=== PATIENT | male | born 1990 | race Caucasian/White ===

== ENCOUNTER 2016-11-15 14:11 | Emergency (ER) | payer MEDICAID, OTHER ==
--- NOTE | 2016-11-15 16:16 | EDPHY ---
H & P Stated Complaint: Working at computer and got dizzy Time Seen by Provider: 11/15/16 16:05 HPI/ROS: CHIEF COMPLAINT: Pre syncope HISTORY OF PRESENT ILLNESS: Patient is a 26-year-old man with no significant past medical history comes to the emergency department after a pre syncopal event at work. He states that he was sitting looking at his computer when he began having tunnel vision and felt lightheaded. He then felt anxious and began hyperventilating and had tingling in both hands and palpitation. He states that he does have a history of anxiety. He does not take any medications. He denies any recent drug or alcohol use. He did have an episode in high school that resulted in him wearing a Holter monitor for a week. No abnormalities were found. He denies any chest pain or shortness of breath today. He is now fully recovered. He denies headache. No focal weakness or deficits. REVIEW OF SYSTEMS: Constitutional: denies: chills, fever, recent illness, recent injury EENTM: denies: blurred vision, double vision, nose congestion Respiratory: denies: cough, shortness of breath Cardiac: See HPI denies: chest pain, irregular heart rate, Gastrointestinal/Abdominal: denies: abdominal pain, diarrhea, nausea, vomiting, blood streaked stools Genitourinary: denies: dysuria, frequency, hematuria, pain Musculoskeletal: denies: joint pain, muscle pain Skin: denies: lesions, rash, jaundice, bruising Neurological: denies: headache, numbness, paresthesia, tingling, dizziness, weakness Hematologic/Lymphatic: denies: blood clots, easy bleeding, easy bruising Immunologic/allergic: denies: HIV/AIDS, transplant EXAM: GENERAL: Well-appearing, well-nourished and in no acute distress. HEAD: Atraumatic, normocephalic. EYES: Pupils equal round and reactive to light, extraocular movements intact, sclera anicteric, conjunctiva are normal. ENT: TMs normal, nares patent, oropharynx clear without exudates. Moist mucous membranes. NECK: Normal range of motion, supple without lymphadenopathy or JVD. LUNGS: Breath sounds clear to auscultation bilaterally and equal. No wheezes rales or rhonchi. HEART: Regular rate and rhythm without murmurs, rubs or gallops. ABDOMEN: Soft, nontender, normoactive bowel sounds. No guarding, no rebound. No masses appreciated. BACK: No CVA tenderness, no spinal tenderness, step-offs or deformities EXTREMITIES: Normal range of motion, no pitting or edema. No clubbing or cyanosis. NEUROLOGICAL: Cranial nerves II through XII grossly intact. Normal speech, normal gait. 5/5 strength, normal movement in all extremities, normal sensation PSYCH: Normal mood, normal affect. SKIN: Warm, dry, normal turgor, no visible rashes or lesions. Source: Patient Exam Limitations: No limitations - Personal History Current Tetanus Diphtheria and Acellular Pertussis (TDAP): Yes - Medical/Surgical History Hx Asthma: No Hx Chronic Respiratory Disease: No Hx Diabetes: No Hx Cardiac Disease: No Hx Renal Disease: No Hx Cirrhosis: No Other PMH: a lot of anxiety with medical situations - Family History Significant Family History: No pertinent family hx - Social History Smoking Status: Never smoked Alcohol Use: Sober Drug Use: None Constitutional: Initial Vital Signs Temperature (C) 37 C 11/15/16 14:35 Heart Rate 88 11/15/16 14:35 Respiratory Rate 18 11/15/16 14:35 Blood Pressure 109/78 11/15/16 14:35 O2 Sat (%) 97 11/15/16 14:35 O2 Delivery Mode Room Air Allergies/Adverse Reactions: sulfamethoxazole [From Bactrim] Allergy (Intermediate, Verified 11/15/16 14:50) Hives trimethoprim [From Bactrim] Allergy (Intermediate, Verified 11/15/16 14:50) Hives Home Medications: Medication Instructions Recorded NK [No Known Home Meds] 11/15/16 Medical Decision Making - Diagnostics Imaging Results: An EKG obtained and was read and documented in trace view. Please see trace view for full reading and report. Sinus rhythm, no acute ischemic changes or arrhythmia ED Course/Re-evaluation: Is 5:30 p.m. the patient remains asymptomatic. He is eager to go home. We discussed the lab results. We discussed follow-up with his primary doctor for Holter monitoring. He understands and agrees with this plan. Differential Diagnosis: Partial list of the Differential diagnosis considered include but were not limited to; pre syncope, arrhythmia and although unlikely based on the history and physical exam, I also considered head injury, infection, acute coronary disease, PE, pneumothorax. I discussed these differential diagnoses and the plan with the patient as well as the usual and expected course. The patient understands that the diagnosis is provisional and that in medicine we are not always correct and that further workup is often warranted. Usual and customary warnings were given. All of the patient's questions were answered. The patient was instructed to return to the emergency department should the symptoms at all worsen or return, otherwise to followup with the physician as we discussed. - Data Points Laboratory Results: Laboratory Results 11/15/16 16:35 11/15/16 16:35 Medications Given: Discontinued Medications Sodium Chloride (Ns) 1,000 mls @ 0 mls/hr IV ONCE ONE; Wide Open PRN Reason: Protocol Stop: 11/15/16 16:38 Last Admin: 11/15/16 16:42 Dose: 1,000 mls Departure - Departure Disposition: Home, Routine, Self-Care Clinical Impression: Pre-syncope Condition: Fair Instructions: Near Syncope (ED) Referrals: Marco A Diggs MD [Primary Care Provider] - 5-7 days, call for appt.
[2016-11-15 16:17] VITALS: O2SAT 98
[2016-11-15] MEDS ORDERED: NS 1,000 ML IV ONE (16:37)
[2016-11-15 16:43] LABS: % IMMATURE GRANULYOCYTES 0.3 % (0.0-1.1); ABSOLUTE IMMATURE GRANULOCYTES 0.04 10^3/uL (0.00-0.10); ADD DIFF? NO; ADD MORPH? NO; ADD SCAN? NO; ATYPICAL LYMPHOCYTE FLAG 10 (0-99); FRAGMENT RBC FLAG 0 (0-99); HEMATOCRIT 46.9 % (40.0-51.0); HEMOGLOBIN 16.9 g/dL (13.7-17.5); LEFT SHIFT FLG 0 (0-99); LIPEMIA HEMOLYSIS FLAG 90 (0-99); MEAN CELL HEMOGLOBIN 30.1 pg (27.9-34.1); MEAN CELL VOLUME 83.6 fL (81.5-99.8); MEAN PLATELET VOLUME 10.7 fL (8.7-11.7); PLATELET CLUMPS FLAG 20 (0-99); PLATELET COUNT 193 10^3/uL (150-400); RED BLOOD CELL COUNT 5.61 10^6/uL (4.40-6.38); RED CELL DISTRIBUTION WIDTH 11.6 % (11.5-15.2)
--- NOTE | 2016-11-15 16:52 | CPEKG ---
Heart Rate: 74 RR Interval: 811 P-R Interval: 160 QRSD Interval: 84 QT Interval: 380 QTC Interval: 422 P Martin: 1 QRS Martin: 30 T Wave Martin: 1 EKG Severity - BORDERLINE ECG - EKG Impression: SINUS RHYTHM EKG Impression: INFERIOR Q WAVES, PROBABLY NORMAL VARIATION Electronically Signed By: Félix Marrufo 15-Nov-2016 16:53:00
[2016-11-15 17:12] LABS: ANION GAP 19 mEq/L (8-16); CALCIUM 10.4 mg/dL (8.5-10.4); CARBON DIOXIDE 20 mEq/l (22-31); CHLORIDE 106 mEq/L (97-110); CREATININE 0.8 mg/dL (0.7-1.3); GLOMERULAR FILTRATION RATE > 60; GLUCOSE 88 mg/dL (70-100); POTASSIUM 3.7 mEq/L (3.5-5.2); SODIUM 145 mEq/L (134-144)
[2016-11-15 17:34] VITALS: BP 122/83; PULSE 69; RESP 16; TEMP 97.7
== END 2016-11-15 17:35 | disposition home or self-care (01) ==
DX: R55 Syncope and collapse (principal); E86.9 Volume depletion, unspecified

== ENCOUNTER 2018-05-05 12:30 | Emergency (ER) | payer MEDICAID ==
--- NOTE | 2018-05-05 13:25 | EDPHY ---
H & P Stated Complaint: lightheaded /syncope at breakfast this morning Source: Patient Exam Limitations: No limitations - Personal History Current Tetanus/Diphtheria Vaccine: Yes Current Tetanus Diphtheria and Acellular Pertussis (TDAP): Yes - Medical/Surgical History Hx Asthma: No Hx Chronic Respiratory Disease: No Hx Diabetes: No Hx Cardiac Disease: No Hx Renal Disease: No Hx Cirrhosis: No Other PMH: a lot of anxiety with medical situations - Social History Smoking Status: Never smoked Time Seen by Provider: 05/05/18 13:24 HPI/ROS: HPI: This is a 27-year-old male who presents with Chief Complaint: lightheaded /syncope at breakfast this morning Location: Head Quality: Lightheadedness/presyncope Duration: 3 hr prior to arrival Signs and Symptoms: no fever, no nausea, no vomiting, no photophobia, no noise sensitivity, no neck stiffness, no ear pain, no tinnitus, no nasal congestion, no sinus pressure, no weakness, no radiation, no aura Timing: Acute, gradually improving Severity: [id number] Context: Patient was at breakfast when he began to feel lightheaded and"almost fainted." He reports that his hands feel numb and tingly bilaterally with sweating on his upper lip. Patient reports that he is unable to gain weight and has increased appetite. At times he feels that his heart is racing. He is wondering if he has a thyroid disorder. There was a similar occurrence occurred 1 year ago in this emergency room with negative EKG and workup. In high school he had to have a Holter monitor due to a similar occurrence but was essentially unremarkable per patient. Patient reports that his hands feel numb and tingly while I am examining him. Denies drug and tobacco use. Did have a bloody Lauren at breakfast and a cup of coffee. Denies loss of consciousness, nausea, vomiting, visual changes, headache, amnesia. Modifying Factors: None Comment: ROS: A comprehensive 10 system review of systems is otherwise negative aside from elements mentioned in the history of present illness. MEDICAL/SURGICAL/SOCIAL HISTORY: Medical history: Anxiety disorder. Does not take any regular medications. Surgical history: Denies Social history: Originally from [place] but has lived in [place] for the last 10 years. Never smoked. Family history noncontributory. CONSTITUTIONAL: Slightly anxious, well-developed, well-nourished adult white male, awake and alert, no obvious distress HEENT: Atraumatic and normocephalic, PERRL, EOMI. Nares patent; no rhinorrhea; no nasal mucosal edema. Tympanic membranes clear. Oropharynx clear, no exudate and moist pink mucosa. Airway patent. No lymphadenopathy. No meningismus. No thyromegaly. Cardiovascular: Normal S1/S2, regular rate, regular rhythm, without murmur rub or gallop. PULMONARY/CHEST: Symmetrical and nontender. Clear to auscultation bilaterally. Good air movement. No accessory muscle usage. ABDOMEN: Soft, nondistended, nontender, no rebound, no guarding, no peritoneal signs, no masses or organomegaly. No CVAT. EXTREMITIES: 2/2 pulses, strength 5/5, no deformities, no clubbing, no cyanosis or edema. NEUROLOGICAL: no focal neuro deficits. GCS 15. SKIN: Warm and dry, no erythema. no rash. Good capillary refill. (Yana Palacios) Constitutional: Initial Vital Signs Temperature (C) 36.5 C 05/05/18 12:33 Heart Rate 93 05/05/18 12:33 Respiratory Rate 16 05/05/18 12:33 Blood Pressure 121/75 H 05/05/18 12:33 O2 Sat (%) 98 05/05/18 12:33 O2 Delivery Mode Room Air Allergies/Adverse Reactions: sulfamethoxazole [From Bactrim] Allergy (Intermediate, Verified 11/15/16 14:50) Hives trimethoprim [From Bactrim] Allergy (Intermediate, Verified 11/15/16 14:50) Hives Home Medications: Medication Instructions Recorded NK [No Known Home Meds] 11/15/16 Medical Decision Making - Diagnostics EKG Interpretation: 12 lead EKG: Indication: Presyncope Rhythm: Normal sinus rhythm, 67 beats per minute [place]: Normal Intervals: Normal QRS: Normal ST segments: Nonspecific changes INTERPRETATION: No acute ischemic changes, no arrhythmias The 12 lead EKG was interpreted by myself and with attending. (Yana Palacios) ED Course/Re-evaluation: Vital signs reviewed and stable upon arrival. Placed on environmental monitoring technician. EKG my read shows normal sinus rhythm with a rate of 67 beats per minute. IV access and laboratory studies ordered along with head CT scan Given 1 L normal saline and IV Ativan 1 mg 1354: Called by Radiology, Dr. Abdullahi, who advised that head CT scan shows no acute intracranial process. 1412: Labs reviewed. WBC 14 K with left shift, glucose 68. No signs of anemia/ platelet dysfunction/MERLE/elevated LFTs/electrolyte imbalance/VTE. After further questioning patient reports that he only eats 1 meal a day. Suspect hypoglycemia is contributing to his near syncope. This patient was seen under the supervision of my secondary supervising physician. I evaluated care for this patient independently. Discussed this patient with Dr. Vaughn who did not see the patient. (Yana Palacios) The patient was evaluated and managed by the physician campaign assistant. I have reviewed this chart and I agree with the findings and plan of care as documented , as indicated by my signature. I am the secondary supervising physician. ( Traci Vaughn) Differential Diagnosis: Differential diagnosis includes but is not limited to anxiety disorder, thyroid disease, pulmonary embolism, anemia, hypovolemia, dehydration, vertigo, pheochromocytoma. (Yana Palacios) - Data Points Laboratory Results: Laboratory Results 05/05/18 13:28 05/05/18 13:28 Medications Given: Discontinued Medications Sodium Chloride (Ns) 1,000 mls @ 0 mls/hr IV ONCE ONE; Wide Open PRN Reason: Protocol Stop: 05/05/18 13:30 Last Admin: 05/05/18 13:32 Dose: 1,000 mls Lorazepam (Ativan Injection) 1 mg IVP EDNOW ONE Stop: 05/05/18 13:30 Last Admin: 05/05/18 13:48 Dose: 1 mg Departure - Departure Disposition: Home, Routine, Self-Care Clinical Impression: Near syncope, Nondiabetic hypoglycemia Condition: Good Instructions: Near Syncope (ED), What to Do if Your Blood Sugar is Low (ED) Additional Instructions: Consume a minimum of 8-10 glasses of water or electrolyte fluid replacement drinks that include Gatorade, Powerade, Pedialyte. Eat approximately every 3-4 hours. Follow-up with primary care provider in the next 1-2 weeks for repeat lab values. Referrals: [facility] [Provider Group] - As per Instructions
[2018-05-05] MEDS ORDERED: NS 1,000 ML IV ONE (13:29)
[2018-05-05] MEDS ORDERED: LORazepam 2 MG/ML INJ IVP ONE (13:29)
[2018-05-05 13:51] LABS: PLATELET COUNT 210 10^3/uL (150-400)
[2018-05-05 14:56] VITALS: BP 122/87
--- NOTE | 2018-05-05 15:39 | CPEKG ---
Test Reason : OPEN Blood Pressure : / mmHG Vent. Rate : 067 BPM Atrial Rate : 066 BPM P-R Int : 153 ms QRS Dur : 088 ms QT Int : 383 ms P-R-T Axes : 048 046 063 degrees QTc Int : 405 ms Sinus rhythm Confirmed by Traci Vaughn ([id number]) on 05/05/2018 3:38:46 PM Referred By: Confirmed By:Traci Vaughn
== END 2018-05-05 14:55 | disposition home or self-care (01) ==
DX: E16.2 Hypoglycemia, unspecified (principal); R55 Syncope and collapse; R42 Dizziness and giddiness
CPT/HCPCS: 96374; J2060